=== PATIENT | male | born 1960 | race African-American/Black ===

== ENCOUNTER → 2019-11-23 | Outpatient (CLI) | payer OTHER ==
--- NOTE | 2019-11-23 12:43 | DRAGON STRESS TEST REPORT ---
Exercise stress test Date: November 23, 2019 Referring physician: Jas Bowling PA-C Performing physician: Farooq Colon MD Indication: Chest pain Clinical history 59-year-old male with diabetes mellitus. Risk stratification was requested by primary care physician. Procedure The patient presented to the stress lab. The patient exercised on the treadmill according to Jeovany protocol for a total of 6 minutes and 57 seconds achieving a maximum heart rate of 162 bpm which was 100% of maximum predicted of 161 bpm. The maximum workload was 9.9 METS. The presenting EKG showed sinus rhythm at 64 bpm. The initial blood pressure was 137 / 89 mmHg. Upon exercise the heart rate mary to a maximum of 162 beats per minute and the blood pressure mary to a maximum of 209/83 mmHg. The patient had appropriate increment in heart rate and hypertensive response with exercise. The exercise EKG was negative for myocardial ischemia-there was significant movement related artifact however. The recovery EKG did not reveal any evidence of myocardial ischemia. The patient tolerated the exercise well and did not report chest pain or dyspnea. The test was terminated on account of patient fatigue and patient having achieved target heart rate. The patient's EKG and vital signs were monitored throughout the procedure. Conclusion The exercise EKG is negative for myocardial ischemia. Fair exercise tolerance. Normal heart rate and hypertensive response to exercise. MTDD
== END ==
LOC: SP 08:45
PROVIDERS: ATTEND Physician Assistant
DX: E11.43 Type 2 diabetes mellitus with diabetic autonomic (poly)neuropathy (principal); R07.9 Chest pain, unspecified; I10 Essential (primary) hypertension; F17.210 Nicotine dependence, cigarettes, uncomplicated
CPT/HCPCS: 93017